=== PATIENT | male | born 1960 | race African-American/Black ===

== ENCOUNTER 2017-01-25 12:04 | Inpatient (IN) | payer BC ==
[~2017-01-25] VITALS: Ht 177.8 cm; Wt 76.0 kg
[2017-01-25 15:55] VITALS: BP 137/85; PULSE 120; TEMP 97.5
[2017-01-25] MEDS ORDERED: ROXICODONE 55 MG/TAB PO (16:04)
[2017-01-25] MEDS ORDERED: PRILOSEC 20MG20 MG PO (16:04)
[2017-01-25] MEDS ORDERED: TUMS500 MG PO (16:05)
[2017-01-25] MEDS ORDERED: TESSALON PERLE200 MG PO (16:06)
[2017-01-25] MEDS ORDERED: TYLENOL 325MG325 MG PO (16:07)
[2017-01-25] MEDS ORDERED: ZOFRAN8 MG PO (16:07)
[2017-01-25] MEDS ORDERED: PREDNISONE20 MG PO (16:10)
[2017-01-25] MEDS ORDERED: SENOKOT S 50 MG1 TAB PO (16:11)
[2017-01-26 05:31] VITALS: BP 108/72; PULSE 100; TEMP 98.1
[2017-01-26 13:03] LABS: MEAN CELL VOLUME 94 fl (80.0-100.0); MEAN CORPUSCULAR HGB CONC 32 g/dl (33.0-37.0); PLATELET COUNT 250 K/mm3 (130-400); RED BLOOD COUNT 3.16 M/mm3 (4.20-5.60); WHITE BLOOD COUNT 19.1 K/mm3 (4.8-10.8)
[2017-01-26 13:05] LABS: HEMATOCRIT 29.7 % (42.0-52.0); HEMOGLOBIN 9.6 g/dl (13.5-18.0); MEAN CORPUSCULAR HEMOGLOBIN 30 pg (27.0-31.0)
[2017-01-26 13:06] LABS: ADD PATHOLOGY DIFF REVIEW NO
[2017-01-26 13:19] LABS: CALCIUM 7.8 mg/dL (8.4-10.2); CREATININE, serum 0.71 mg/dL (0.66-1.25)
[2017-01-26 13:41] LABS: BAND 22 % (0-10); LYMPHOCYTE 3 % (20.0-51.0); NEUTROPHILS 74 % (42.0-75.2); PLATELET ESTIMATE NORMAL (NORMAL); TOTAL CELLS COUNTED 100
[2017-01-26 13:43] LABS: ANISOCYTOSIS 3+; HYPOCHROMIA 1+; OVALOCYTES 1+
[2017-01-26 15:38] VITALS: BP 140/88; PULSE 110; TEMP 97.9
[2017-01-27 06:04] VITALS: BP 123/84; PULSE 107; TEMP 98.4
[2017-01-27 16:23] VITALS: BP 139/92; PULSE 101; TEMP 97.7
[2017-01-28 05:48] VITALS: BP 145/84; PULSE 106; TEMP 98.8
[2017-01-28 17:02] VITALS: BP 124/78; PULSE 107; TEMP 98.3
[2017-01-29 04:47] VITALS: BP 140/80; PULSE 102; TEMP 98.6
[2017-01-29 17:18] VITALS: BP 136/70; PULSE 101; TEMP 98
[2017-01-29 21:56] LABS: COLLECTION METHOD CLEAN CATCH
[2017-01-29 22:02] LABS: MUCOUS Present /lpf; PH 7 (5-8); SQUAMOUS EPITHELIAL None Seen /hpf; URINE APPEARANCE Clear; URINE BACTERIA None Seen /hpf; URINE BILIRUBIN Positive (NEGATIVE); URINE BLOOD Negative (NEGATIVE); URINE COLOR Amber; URINE GLUCOSE 1+ (NEGATIVE); URINE KETONE Negative (NEGATIVE); URINE LEUKOCYTE ESTERASE Negative (NEGATIVE); URINE PROTEIN(semi-quant) Negative (NEGATIVE); URINE RBC 0-2 /hpf; URINE UROBILINOGEN >=4.0 mg/dL (NEGATIVE); URINE WBC 0-2 /hpf
[2017-01-30 06:04] VITALS: BP 131/85; PULSE 101; TEMP 97.5
[2017-01-30 06:09] LABS: MEAN CELL VOLUME 93 fl (80.0-100.0); MEAN CORPUSCULAR HGB CONC 32 g/dl (33.0-37.0); MEAN PLATELET VOLUME 10.2 fl (7.4-10.4); PLATELET COUNT 217 K/mm3 (130-400); RED BLOOD COUNT 2.94 M/mm3 (4.20-5.60); WHITE BLOOD COUNT 18.7 K/mm3 (4.8-10.8)
[2017-01-30 06:18] LABS: ADD PATHOLOGY DIFF REVIEW NO; HEMATOCRIT 27.4 % (42.0-52.0); HEMOGLOBIN 8.7 g/dl (13.5-18.0); MEAN CORPUSCULAR HEMOGLOBIN 30 pg (27.0-31.0)
[2017-01-30 06:22] LABS: ADJUSTED CALCIUM 9.5 mg/dL (8.4-10.2); ALBUMIN 2.1 gm/dL (3.5-5.0); BILIRUBIN,TOTAL 9.1 mg/dL (0.0-1.0); CREATININE, serum 0.62 mg/dL (0.66-1.25); POTASSIUM 3.6 mmol/L (3.4-5.0); TOTAL PROTEIN 5.1 gm/dL (6.4-8.2)
[2017-01-30 07:29] LABS: ANISOCYTOSIS 2+; LYMPHOCYTE 4 % (20.0-51.0); METAMYELOCYTE 1 % (0-0); NEUTROPHILS 93 % (42.0-75.2); PLATELET ESTIMATE NORMAL (NORMAL); TOTAL CELLS COUNTED 100
[2017-01-30 16:08] VITALS: BP 134/83; PULSE 112; TEMP 97.8
[2017-01-31 05:29] VITALS: BP 146/86; PULSE 99; TEMP 98
[2017-01-31 15:36] VITALS: BP 141/86; PULSE 87; TEMP 98
[2017-02-01 05:26] VITALS: BP 116/78; PULSE 116; TEMP 98
[2017-02-01 07:58] VITALS: PULSE 124
[2017-02-01 12:10] LABS: ADD PATHOLOGY DIFF REVIEW NO
[2017-02-01 12:18] LABS: MEAN CELL VOLUME 95 fl (80.0-100.0); MEAN CORPUSCULAR HGB CONC 32 g/dl (33.0-37.0); MEAN PLATELET VOLUME 9.7 fl (7.4-10.4); PLATELET COUNT 201 K/mm3 (130-400); RED BLOOD COUNT 3.19 M/mm3 (4.20-5.60)
[2017-02-01 12:21] LABS: INR 1.6 (0.8-3.0); PROTHROMBIN TIME 19.2 SECONDS (9.7-12.8)
[2017-02-01 12:23] LABS: HEMATOCRIT 30.4 % (42.0-52.0); HEMOGLOBIN 9.7 g/dl (13.5-18.0); MEAN CORPUSCULAR HEMOGLOBIN 30 pg (27.0-31.0); WHITE BLOOD COUNT 21.5 K/mm3 (4.8-10.8)
[2017-02-01 12:29] LABS: BAND 1 % (0-10); LYMPHOCYTE 2 % (20.0-51.0); NEUTROPHILS 95 % (42.0-75.2); PLATELET ESTIMATE NORMAL (NORMAL); TARGET CELLS 2+; TOTAL CELLS COUNTED 100
[2017-02-01 12:30] LABS: HYPOCHROMIA 2+; POLYCHROMASIA 2+
[2017-02-01 12:32] LABS: ADJUSTED CALCIUM 9.3 mg/dL (8.4-10.2); ALBUMIN 2.6 gm/dL (3.5-5.0); BILIRUBIN,TOTAL 11.2 mg/dL (0.0-1.0); CALCIUM 8.2 mg/dL (8.4-10.2); CREATININE, serum 0.74 mg/dL (0.66-1.25); MAGNESIUM 1.7 mg/dL (1.6-2.3); POTASSIUM 3.8 mmol/L (3.4-5.0); TOTAL PROTEIN 5.9 gm/dL (6.4-8.2)
[2017-02-01 16:18] VITALS: BP 149/87; PULSE 110; TEMP 98.2
[2017-02-02 03:51] VITALS: BP 155/93; PULSE 102; TEMP 98.3
[2017-02-02 05:34] VITALS: BP 124/70; PULSE 96
[2017-02-02 06:30] LABS: ADD PATHOLOGY DIFF REVIEW NO
[2017-02-02 06:36] LABS: MEAN CELL VOLUME 95 fl (80.0-100.0); MEAN CORPUSCULAR HGB CONC 32 g/dl (33.0-37.0); MEAN PLATELET VOLUME 10.3 fl (7.4-10.4); PLATELET COUNT 165 K/mm3 (130-400); RED BLOOD COUNT 2.89 M/mm3 (4.20-5.60)
[2017-02-02 06:50] LABS: ADJUSTED CALCIUM 9.4 mg/dL (8.4-10.2); ALBUMIN 2.2 gm/dL (3.5-5.0); BILIRUBIN,TOTAL 9.1 mg/dL (0.0-1.0); CREATININE, serum 0.6 mg/dL (0.66-1.25); POTASSIUM 3.4 mmol/L (3.4-5.0); TOTAL PROTEIN 5.2 gm/dL (6.4-8.2)
[2017-02-02 06:51] LABS: INR 1.5 (0.8-3.0)
[2017-02-02 07:04] LABS: HEMATOCRIT 27.4 % (42.0-52.0); HEMOGLOBIN 8.7 g/dl (13.5-18.0); MEAN CORPUSCULAR HEMOGLOBIN 30 pg (27.0-31.0); WHITE BLOOD COUNT 20.1 K/mm3 (4.8-10.8)
[2017-02-02 08:48] LABS: ANISOCYTOSIS 3+; BAND 22 % (0-10); HYPOCHROMIA 2+; LYMPHOCYTE 3 % (20.0-51.0); METAMYELOCYTE 1 % (0-0); NEUTROPHILS 73 % (42.0-75.2); OVALOCYTES 1+; PLATELET ESTIMATE NORMAL (NORMAL); TOTAL CELLS COUNTED 100
[2017-02-02 17:23] VITALS: BP 149/89; PULSE 109; TEMP 98.3
[2017-02-03 05:10] VITALS: BP 150/92; PULSE 96; TEMP 99.4
[2017-02-03 06:12] LABS: ADD PATHOLOGY DIFF REVIEW NO
[2017-02-03 06:24] LABS: MEAN CELL VOLUME 94 fl (80.0-100.0); MEAN CORPUSCULAR HGB CONC 32 g/dl (33.0-37.0); MEAN PLATELET VOLUME 10.6 fl (7.4-10.4); PLATELET COUNT 156 K/mm3 (130-400); RED BLOOD COUNT 2.87 M/mm3 (4.20-5.60)
[2017-02-03 06:27] LABS: HEMATOCRIT 26.9 % (42.0-52.0); HEMOGLOBIN 8.7 g/dl (13.5-18.0); MEAN CORPUSCULAR HEMOGLOBIN 30 pg (27.0-31.0); WHITE BLOOD COUNT 19.9 K/mm3 (4.8-10.8)
[2017-02-03 06:43] LABS: ADJUSTED CALCIUM 9.4 mg/dL (8.4-10.2); ALBUMIN 2.1 gm/dL (3.5-5.0); BILIRUBIN,TOTAL 8.3 mg/dL (0.0-1.0); CALCIUM 7.9 mg/dL (8.4-10.2); CREATININE, serum 0.59 mg/dL (0.66-1.25); MAGNESIUM 1.6 mg/dL (1.6-2.3); POTASSIUM 3.1 mmol/L (3.4-5.0)
[2017-02-03 06:46] LABS: INR 1.4 (0.8-3.0); PROTHROMBIN TIME 16.7 SECONDS (9.7-12.8)
[2017-02-03 07:06] LABS: LYMPHOCYTE 4 % (20.0-51.0); NEUTROPHILS 95 % (42.0-75.2); TOTAL CELLS COUNTED 100
[2017-02-03 07:07] LABS: ANISOCYTOSIS 2+; PLATELET ESTIMATE NORMAL (NORMAL); STOMATOCYTE 1+; TARGET CELLS 1+; TOXIC GRANULATION PRESENT
[2017-02-03 16:20] VITALS: BP 137/83; PULSE 90; TEMP 98.1
[2017-02-04 06:35] VITALS: BP 146/86; PULSE 92; TEMP 98.4
[2017-02-04 18:33] VITALS: BP 142/92; PULSE 93; TEMP 98
[2017-02-05 06:17] VITALS: BP 146/84; PULSE 91; TEMP 99.2
[2017-02-05 17:38] VITALS: BP 124/69; PULSE 91; TEMP 98.1
[2017-02-06 05:41] VITALS: BP 143/72; PULSE 91; TEMP 98.5
[2017-02-06] MEDS ORDERED: CLARITIN 1010 MG/TAB PO (12:06)
[2017-02-06] MEDS ORDERED: DEEP SEA 45 ML45 ML NS (12:07)
[2017-02-06] MEDS ORDERED: ELIQUIS 5MG PO (12:08)
[2017-02-06] MEDS ORDERED: PROAIR HFA0.09 MG/AC IH (12:08)
== END 2017-02-06 14:10 | disposition home or self-care (01) | DRG 947 ==
PROVIDERS: Family Medicine; Internal Medicine
DX: R53.81 Other malaise (principal); A41.9 Sepsis, unspecified organism; J18.9 Pneumonia, unspecified organism; J90 Pleural effusion, not elsewhere classified; C18.8 Malignant neoplasm of overlapping sites of colon; C78.7 Secondary malignant neoplasm of liver and intrahepatic bile duct; C78.01 Secondary malignant neoplasm of right lung; C78.02 Secondary malignant neoplasm of left lung; Z86.711 Personal history of pulmonary embolism; Z79.01 Long term (current) use of anticoagulants; Z87.891 Personal history of nicotine dependence; R04.0 Epistaxis
CPT/HCPCS: 99222-AI; 99232-AI; 99233-AI; 99239; A9284; J0696; J1644; J7512

== ENCOUNTER 2017-02-27 07:51 | Day surgery (SDC) | payer BC ==
[~2017-02-27] VITALS: Ht 177.8 cm; Wt 71.0 kg
[~2017-02-27 07:51] MED LIST: CLARITIN 1010 MG/TAB PO; DEEP SEA 45 ML45 ML NS; ELIQUIS 5MG PO; PREDNISONE20 MG PO; PRILOSEC 20MG20 MG PO; PROAIR HFA0.09 MG/AC IH; ROXICODONE 55 MG/TAB PO; SENOKOT S 50 MG1 TAB PO; TESSALON PERLE200 MG PO; TUMS500 MG PO; TYLENOL 325MG325 MG PO; ZOFRAN8 MG PO
[2017-02-27 08:15] VITALS: BP 116/77; PULSE 133; TEMP 98.1
[2017-02-27] MEDS ORDERED: ROXICODONE 55 MG/TAB PO (08:27)
[2017-02-27 08:52] LABS: INR 1.2 (0.8-3.0); PROTHROMBIN TIME 13.8 SECONDS (9.7-12.8)
[2017-02-27 08:54] LABS: MEAN CELL VOLUME 96 fl (80.0-100.0); MEAN CORPUSCULAR HGB CONC 33 g/dl (33.0-37.0); MEAN PLATELET VOLUME 11.3 fl (7.4-10.4); PLATELET COUNT 161 K/mm3 (130-400); RED BLOOD COUNT 3.16 M/mm3 (4.20-5.60); REDCELL DISTRIBUTION WIDTH-CV 17.8 % (11.5-14.5)
[2017-02-27 08:56] LABS: HEMATOCRIT 30.2 % (42.0-52.0); MEAN CORPUSCULAR HEMOGLOBIN 32 pg (27.0-31.0)
[2017-02-27 09:07] LABS: PARTIAL THROMBOPLASTIN TIME 35.1 SECONDS (26.0-37.0)
[2017-02-27 10:05] VITALS: BP 111/74; PULSE 120
[2017-02-27 10:58] LABS: BAND 20 % (0-10); LYMPHOCYTE 14 % (20.0-51.0); NEUTROPHILS 65 % (42.0-75.2); PLATELET ESTIMATE NORMAL (NORMAL)
[2017-02-27 11:08] VITALS: BP 92/63; PULSE 120
== END 2017-02-27 10:20 | disposition home or self-care (01) ==
LOC: SDCO 07:51
PROVIDERS: Internal Medicine Pulmonary Disease
DX: J90 Pleural effusion, not elsewhere classified (principal); Z53.8 Procedure and treatment not carried out for other reasons; I10 Essential (primary) hypertension; C18.9 Malignant neoplasm of colon, unspecified; C78.7 Secondary malignant neoplasm of liver and intrahepatic bile duct; C78.00 Secondary malignant neoplasm of unspecified lung; Z79.01 Long term (current) use of anticoagulants; Z90.49 Acquired absence of other specified parts of digestive tract; Z86.711 Personal history of pulmonary embolism; Z87.891 Personal history of nicotine dependence; Z82.49 Family history of ischemic heart disease and other diseases of the circulatory system; K21.9 Gastro-esophageal reflux disease without esophagitis
CPT/HCPCS: J1720; J7120